=== PATIENT | male | born 1945 ===

== ENCOUNTER 2017-03-10 18:33 | Emergency (ER) | payer OTHER ==
[2017-03-10 19:45] VITALS: RESP 18; BMI 29.9
[2017-03-10] MEDS ORDERED: Morphine 4 mg/ml ISec IVP STA (20:27)
--- NOTE | 2017-03-10 20:29 | ED PDOC ---
Arrival/HPI - General Chief Complaint: Lower Extremity Problem/Injury Time Seen by Provider: 03/10/17 19:59 Historian: Patient - History of Present Illness Narrative History of Present Illness (Text): 03/10/17 20:21 71 y/o male, pmh including htn/seizure/heart valve on the blood thinner, nkda, c /o rt. knee pain and swelling x 3 days with no fall or trauma. Aching pain, associated with swelling, no fever or chills, no night sweat, no dizziness, no rash, no numbness or tingling, no night sweat, no other medical or psychological complaints. Past Medical History - Provider Review Nursing Documentation Reviewed: Yes - Infectious Disease Hx of Infectious Diseases: None - Cardiac Hx Hypertension: Yes - Neurological Hx Seizures: Yes - Psychiatric Hx Substance Use: No Family/Social History - Physician Review Nursing Documentation Reviewed: Yes Family/Social History: Unknown Family HX Smoking Status: Never Smoked Hx Alcohol Use: No Hx Substance Use: No Allergies/Home Meds Allergies/Adverse Reactions: Allergies No Known Allergies Allergy (Verified 03/10/17 19:45) Home Medications: Home Meds Medication Instructions Recorded Confirmed Amlodipine Bes/Olmesartan Med 1 tab PO DAILY 03/10/17 03/10/17 [Amlodipine-Olmesartan 10-20 mg] Levetiracetam [Keppra] 1,000 mg PO BID 03/10/17 03/10/17 Metoprolol Succinate [Toprol XL] 100 mg PO DAILY 03/10/17 03/10/17 Valsartan/Hydrochlorothiazide 1 tab PO DAILY 03/10/17 03/10/17 [Valsartan-Hctz 320-25 mg Tab] Warfarin Sodium [Jantoven] 5 mg PO DAILY 03/10/17 03/10/17 lamoTRIgine [Lamictal] 50 mg PO QAM 03/10/17 03/10/17 lamoTRIgine [Lamictal] 100 mg PO QPM 03/10/17 03/10/17 Review of Systems - Review of Systems Constitutional: absent: Fatigue, Fevers Eyes: absent: Vision Changes ENT: absent: Hearing Changes Respiratory: absent: SOB, Cough Cardiovascular: absent: Chest Pain Gastrointestinal: absent: Abdominal Pain, Diarrhea, Nausea, Vomiting Genitourinary Male: absent: Dysuria Musculoskeletal: Arthralgias, Joint Swelling. absent: Back Pain, Neck Pain, Myalgias Skin: absent: Rash, Pruritis, Skin Lesions Neurological: absent: Headache Psychiatric: absent: Anxiety, Depression, Suicidal Ideation Physical Exam Vital Signs Reviewed: Yes Vital Signs Temp Pulse Resp BP Pulse Ox 03/10/17 23:06 97.9 F 84 18 120/68 100 03/10/17 21:20 67 18 126/72 100 03/10/17 18:33 98.2 F 63 18 105/54 L 97 Temperature: Afebrile Pulse: Regular Respiratory Rate: Normal Appearance: Positive for: Well-Appearing, Non-Toxic, Comfortable Pain Distress: Severe Mental Status: Positive for: Alert and Oriented X 3 - Systems Exam Head: Present: Atraumatic, Normocephalic Pupils: Present: PERRL Extroacular Muscles: Present: EOMI Conjunctiva: Present: Normal Mouth: Present: Moist Mucous Membranes Neck: Present: Normal Range of Motion Respiratory/Chest: Present: Clear to Auscultation, Good Air Exchange. No: Respiratory Distress, Accessory Muscle Use Cardiovascular: Present: Regular Rate and Rhythm, Normal S1, S2. No: Murmurs Abdomen: Present: Normal Bowel Sounds. No: Tenderness, Distention, Peritoneal Signs Back: Present: Normal Inspection Upper Extremity: Present: Normal Inspection. No: Cyanosis, Edema Lower Extremity: Present: Normal Inspection, Other (RLE: +ttp on the medial and lateral aspect of the knee with mild swelling, no erythematous, no cellulitis or streaking, FROM without limitation, sensation intact, motor 5/5, +DPPT pulses , capillary refill< 2 second, neurovascular intact, negative bello signs. ). No: Edema Neurological: Present: GCS=15, Speech Normal, Motor Func Grossly Intact, Gait Normal, Memory Normal Skin: Present: Warm, Dry, Normal Color. No: Rashes Psychiatric: Present: Alert, Oriented x 3, Normal Insight, Normal Concentration Medical Decision Making ED Course and Treatment: 03/10/17 20:33 -labs -RLE venuous doppler -Rt. knee xray -IV morphine -Observe and reassess 03/10/17 23:33 -RLE Venouous Dopple: as per preliminary report, no acute DVT -Rt. knee xray: no fracture or dislocation but degenerative joint changes. -Labs are non-significant and INR 2.91 -K+ 3.3 with potassium chloride 20meq po ordered. -pain resolved, claudio wrap and crutches ordered. -Discharge home with tylenol, claudio wrap, cane, follow up with your own pmd and orthopedic within 2 days, return to the ER for any new or worsening signs or symptoms. - Lab Interpretations Lab Results: 03/10/17 21:15 03/10/17 21:15 Lab Results 03/10/17 21:15: WBC 6.6, RBC 4.42, Hgb 12.5 L, Hct 38.4 L, MCV 86.9, MCH 28.3, MCHC 32.6, RDW 14.3, Plt Count 178, MPV 10.2, Gran % 76.8 H, Lymph % (Auto) 13.5 L, Island % (Auto) 5.9, Eos % (Auto) 3.6, Baso % (Auto) 0.2, Gran # 5.05, Lymph # 0.9 L, Island # 0.4, Eos # 0.2, Baso # 0.01 03/10/17 21:15: Sodium 143, Potassium 3.3 L, Chloride 106, Carbon Dioxide 27, Anion Gap 13, BUN 29 H, Creatinine 1.7 H, Est GFR ( Amer) 48, Est GFR ( Non-Af Amer) 40, Random Glucose 106, Uric Acid 8.9 H, Calcium 9.7, Total Bilirubin 0.5, AST 31, ALT 32, Alkaline Phosphatase 70, Total Protein 7.6, Albumin 4.1, Globulin 3.5, Albumin/Globulin Ratio 1.2 03/10/17 21:15: PT 33.9 H, INR 2.91 H, APTT 42.9 H - RAD Interpretation Radiology Orders: 03/10/17 20:27 KNEE W PATELLA RIGHT 3 VIEW [RAD] Stat DUPLEX LOWER EXTRM VEIN RIGHT [US] Stat -RLE Venouous Doppler: as per preliminary report, no acute DVT Senior Cyber Intelligence Analyst: Radiologist - Medication Orders Current Medication Orders: Discontinued Medications Sodium Chloride (Sodium Chloride 0.9%) 500 mls @ 999 mls/hr IV .Q31M STA Stop: 03/10/17 23:11 Morphine Sulfate (Morphine) 4 mg IVP STAT STA Stop: 03/10/17 20:28 Last Admin: 03/10/17 21:15 Dose: 4 mg MAR Pain Assessment Document 03/10/17 21:15 SRE (Rec: 03/10/17 21:20 SRE [email or web address]) Pain Reassessment Is this a pain reassessment? Yes Presence of Pain Presence of Pain Yes Location Left, Right or Bilateral Left Pain Location Body Site Knee Description Description Constant Intensity of Pain at present 8 IVP Administration Document 03/10/17 21:15 SRE (Rec: 03/10/17 21:20 SRE [email or web address]) Charges for Administration # of IVP Administrations 1 Potassium Chloride (K-Dur 20 Meq Er Tab) 20 meq PO STAT STA Stop: 03/10/17 23:25 - PA / AIRWAYS CONTROL SPECIALIST / Resident Statement MD/DO has reviewed & agrees with the documentation as recorded. Disposition/Present on Arrival - Present on Arrival Any Indicators Present on Arrival: No History of DVT/PE: No History of Uncontrolled Diabetes: No Urinary Catheter: No History of Decub. Ulcer: No History Surgical Site Infection Following: None - Disposition Have Diagnosis and Disposition been Completed?: Yes Diagnosis: Knee joint pain, Degenerative joint disease Disposition: HOME/ ROUTINE Disposition Time: 23:36 Patient Plan: Discharge Patient Problems: Current Active Problems Problem Status Onset Degenerative joint disease Acute Knee joint pain Acute Condition: IMPROVED Discharge Instructions (ExitCare): Osteoarthritis (ED) Print Language: LATVIAN Additional Instructions: -Discharge home with tylenol, claudio wrap, cane, follow up with your own pmd and orthopedic within 2 days, return to the ER for any new or worsening signs or symptoms. Prescriptions: Acetaminophen [Tylenol 325mg tab] 2 tab PO QID PRN #30 tab PRN Reason: Other Referrals: Parmjit Rosario MD [Primary Care Provider] - Follow up with primary Chepe Mcmahon MD [Staff Provider] - Follow up with primary Forms: [employer] (Kazakh)
[2017-03-10 21:21] VITALS: O2SAT 100
[2017-03-10 21:40] LABS: BASO # 0.01 K/mm3 (0.0-2.0); BASO % 0.2 % (0.0-3.0); EOS # 0.2 (0.0-0.7); EOS % 3.6 % (1.5-5.0); GRAN # 5.05 (1.4-6.5); GRAN % 76.8 % (50.0-68.0); HEMOGLOBIN 12.5 g/dL (14.0-18.0); LYMPH # 0.9 (1.2-3.4); LYMPH % 13.5 % (22.0-35.0); MEAN CELL VOLUME 86.9 fl (80.0-105.0); MEAN CORPUSCULAR HEMOGLOBIN 28.3 pg (25.0-35.0); MEAN CORPUSCULAR HGB CONC 32.6 g/dl (31.0-37.0); MEAN PLATELET VOLUME 10.2 fl (7.0-11.0); MONO # 0.4 (0.1-0.6); MONO % 5.9 % (1.0-6.0); RBC 4.42 10^6/uL (3.5-6.1); RED CELL DISTRIBUTION WIDTH 14.3 % (11.5-14.5); WHITE BLOOD COUNT 6.6 10^3/ul (4.5-11.0)
[2017-03-10 21:56] LABS: INR 2.91 (0.93-1.08); PROTHROMBIN TIME 33.9 SECONDS (9.4-12.5)
[2017-03-10 21:57] LABS: PARTIAL THROMBOPLASTIN TIME 42.9 Seconds (25.1-36.5)
[2017-03-10 21:59] LABS: ALB/GLOB RATIO 1.2 (1.1-1.8); ALBUMIN 4.1 g/dL (3.0-4.8); CALCIUM 9.7 mg/dL (8.4-10.5); URIC ACID 8.9 mg/dL (3.5-8.5)
[2017-03-10] MEDS ORDERED: Sodium Chloride 0.9% 500 ML IV STA (22:41)
[2017-03-10 23:07] VITALS: BP 120/68; PULSE 84; TEMP 97.9
[2017-03-10] MEDS ORDERED: Potassium Chloride 20 mEq ER Tab PO STA (23:24)
--- NOTE | 2017-03-11 11:51 | RAD ---
PROCEDURE: Right Knee Radiographs. HISTORY: rt. knee pain and swelling COMPARISON: None. FINDINGS: BONES: No acute fracture. No acute fracture. Proliferative hypertrophic changes emanating from the femoral condyle and tibial plateau regions. JOINTS: Degenerative changes primarily affecting medial compartment. JOINT EFFUSION: Trace joint effusion OTHER FINDINGS: Suprapatellar soft tissue swelling. IMPRESSION: Soft tissue swelling without acute articular or osseous abnormality.
--- NOTE | 2017-03-11 18:07 | US ---
PROCEDURE: Right lower extremity venous duplex Doppler. HISTORY: RLE swelling COMPARISON: None available. TECHNIQUE: Common femoral, superficial femoral, popliteal and posterior tibial veins were evaluated. Flow was assessed with color Doppler, compressibility, assessment of phasic flow and augmentation response. FINDINGS: COMMON FEMORAL VEIN: Normal flow, compressibility and augmentation response. SUPERFICIAL FEMORAL VEIN: Normal flow, compressibility and augmentation response. POPLITEAL VEIN: Normal flow, compressibility and augmentation response. POSTERIOR TIBIAL VEIN: Normal flow, compressibility and augmentation response. OTHER FINDINGS: None. IMPRESSION: No evidence of deep venous thrombosis in the right lower extremity.
== END 2017-03-10 23:40 | disposition home or self-care (01) ==
LOC: ED 18:33
DX: M25.561 Pain in right knee (principal); M19.90 Unspecified osteoarthritis, unspecified site; I10 Essential (primary) hypertension; Z79.01 Long term (current) use of anticoagulants
CPT/HCPCS: 73562; 80053; 84550; 85025; 85610; 85730; 93971; 96374; 99285; J2270

== ENCOUNTER 2017-03-14 20:44 | Emergency (ER) | payer OTHER ==
[2017-03-14 20:44] VITALS: BMI 29.9
--- NOTE | 2017-03-14 21:14 | ED PDOC ---
Arrival/HPI - General Chief Complaint: Lower Extremity Problem/Injury Time Seen by Provider: 03/14/17 20:54 Historian: Patient, Family - History of Present Illness Narrative History of Present Illness (Text): 03/14/17 21:12 Remedios Interiano is a 71 year old male, whose past medical history includes hypertension and seizures, who presents to the Emergency department accompanied by relative for right knee pain for 1 week. Relative states patient was seen on 03/10/2017 for similar symptoms and discharged home. Patient had XR and US studies performed which were negative for any acute processes. Patient was seen by his PMD and is scheduled for outpatient MRI, but is still experiencing pain and requested pain medication. Patient denies any decreased range of motion, weakness/numbness/tingling in extremity, recent trauma/injury, fever, chest pain , shortness of breath, nausea, or any other complaints. Time/Duration: 1 week Symptom Onset: Gradual Symptom Course: Unchanged Activities at Onset: Light Context: Home Past Medical History - Provider Review Nursing Documentation Reviewed: Yes - Infectious Disease Hx of Infectious Diseases: None - Cardiac Hx Hypertension: Yes - Neurological Hx Seizures: Yes - Psychiatric Hx Substance Use: No Family/Social History - Physician Review Nursing Documentation Reviewed: Yes Family/Social History: Unknown Family HX Smoking Status: Never Smoked Hx Alcohol Use: No Hx Substance Use: No Allergies/Home Meds Allergies/Adverse Reactions: Allergies No Known Allergies Allergy (Verified 03/14/17 20:53) Home Medications: Home Meds Medication Instructions Recorded Confirmed Amlodipine Bes/Olmesartan Med 1 tab PO DAILY 03/10/17 03/14/17 [Amlodipine-Olmesartan 10-20 mg] Levetiracetam [Keppra] 1,000 mg PO BID 03/10/17 03/14/17 Metoprolol Succinate [Toprol XL] 100 mg PO DAILY 03/10/17 03/14/17 Valsartan/Hydrochlorothiazide 1 tab PO DAILY 03/10/17 03/14/17 [Valsartan-Hctz 320-25 mg Tab] Warfarin Sodium [Jantoven] 5 mg PO DAILY 03/10/17 03/14/17 lamoTRIgine [Lamictal] 50 mg PO QAM 03/10/17 03/14/17 lamoTRIgine [Lamictal] 100 mg PO QPM 03/10/17 03/14/17 Review of Systems - Physician Review All systems were reviewed & negative as marked: Yes - Review of Systems Constitutional: Normal. absent: Fevers Eyes: Normal ENT: Normal Respiratory: Normal. absent: SOB, Cough Cardiovascular: Normal. absent: Chest Pain, Calf Pain Gastrointestinal: Normal. absent: Abdominal Pain, Diarrhea, Nausea, Vomiting Genitourinary Male: Normal. absent: Dysuria, Frequency, Hematuria, Urinary Output Changes Musculoskeletal: Arthralgias (+right knee pain). absent: Neck Pain Skin: Normal. absent: Rash Neurological: Normal. absent: Headache, Dizziness Endocrine: Normal Hemo/Lymphatic: Normal Psychiatric: Normal Physical Exam Vital Signs Reviewed: Yes Vital Signs Temp Pulse Resp BP Pulse Ox 03/14/17 20:53 98.1 F 66 16 126/67 98 Temperature: Afebrile Blood Pressure: Normal Pulse: Regular Respiratory Rate: Normal Appearance: Positive for: Well-Appearing, Non-Toxic, Comfortable Pain Distress: None Mental Status: Positive for: Alert and Oriented X 3 - Systems Exam Head: Present: Atraumatic, Normocephalic Pupils: Present: PERRL Extroacular Muscles: Present: EOMI Conjunctiva: Present: Normal Mouth: Present: Moist Mucous Membranes Neck: Present: Normal Range of Motion. No: Meningeal Signs, MIDLINE TENDERNESS , Paraspinal Tenderness Respiratory/Chest: Present: Clear to Auscultation, Good Air Exchange. No: Respiratory Distress, Accessory Muscle Use Cardiovascular: Present: Regular Rate and Rhythm, Normal S1, S2. No: Murmurs Abdomen: Present: Normal Bowel Sounds. No: Tenderness, Distention, Peritoneal Signs Back: Present: Normal Inspection. No: CVA Tenderness, Midline Tenderness, Paraspinal Tenderness Upper Extremity: Present: Normal Inspection. No: Cyanosis, Edema Lower Extremity: Present: NORMAL PULSES, Normal ROM, Tenderness (Pain with right knee flexion and palpation of right knee), Neurovascularly Intact, Capillary Refill < 2 s. No: Edema, CALF TENDERNESS, Cyanosis, Swelling, Erythema, Deformity, Temperature Abnormalties Neurological: Present: GCS=15, CN II-XII Intact, Speech Normal Skin: Present: Warm, Dry, Normal Color. No: Rashes Psychiatric: Present: Alert, Oriented x 3, Normal Insight, Normal Concentration Medical Decision Making ED Course and Treatment: 03/14/17 21:12 Impression: 71 year old male complaining of right knee pain for 1 week. Plan: -- Morphine -- Reassess and disposition Prior Visits: Notes and results from previous visits were reviewed. On 03/10/2017, pt was seen in the Emergency department for right knee pain. Lower Extremity doppler was negative for DVT, Right Knee XR with degenerative joint changes but negative for fracture or dislocation. Pt was d/c home on Tylenol and Colchicine. Progress Notes: 03/14/17 22:19 On re-evaluation, patient feels better and is in no acute distress. I have discussed plan with the patient, who expresses understanding. Patient in agreement with plan to be discharged home. Patient is stable for discharge. Patient was instructed to follow up with physician or return if symptoms worsen or new concerning symptoms arise. - Medication Orders Current Medication Orders: Discontinued Medications Morphine Sulfate (Morphine) 4 mg IM STAT STA Stop: 03/14/17 21:19 Last Admin: 03/14/17 21:53 Dose: 4 mg MAR Pain Assessment Document 03/14/17 21:53 IT (Rec: 03/14/17 21:53 IT [id number]) Pain Reassessment Is this a pain reassessment? No Sleep Is patient sleeping during reassessment? No Presence of Pain Presence of Pain Yes Pain Scale Used Pain Scale Used Numeric Location Left, Right or Bilateral Right Pain Location Body Site Knee IM Administration Charges Document 03/14/17 21:53 IT (Rec: 03/14/17 21:53 IT [id number]) Injection Site MAR Injection Site Left Deltoid Charges for Administration # of IM Administrations 1 - Scribe Statement The provider has reviewed the documentation as recorded by the Scribjuan Jama All medical record entries made by the Scribe were at my direction and personally dictated by me. I have reviewed the chart and agree that the record accurately reflects my personal performance of the history, physical exam, medical decision making, and the department course for this patient. I have also personally directed, reviewed, and agree with the discharge instructions and disposition. Disposition/Present on Arrival - Present on Arrival Any Indicators Present on Arrival: No History of DVT/PE: No History of Uncontrolled Diabetes: No Urinary Catheter: No History of Decub. Ulcer: No History Surgical Site Infection Following: None - Disposition Have Diagnosis and Disposition been Completed?: Yes Diagnosis: Knee joint pain, Degenerative joint disease Disposition: HOME/ ROUTINE Disposition Time: 22:19 Patient Plan: Discharge Patient Problems: Current Active Problems Problem Status Onset Degenerative joint disease Acute Knee joint pain Acute Condition: GOOD Discharge Instructions (ExitCare): Osteoarthritis (ED) Additional Instructions: Take meds as prescribed/follow up with your orthopedist this week as previously instructed Prescriptions: oxyCODONE/Acetaminophen [Percocet 5/325 mg Tab] 1 tab PO Q6 PRN #16 tab PRN Reason: Pain, Moderate (4-7) Referrals: Parmjit Rosario MD [Primary Care Provider] - Follow up with primary Forms: [email or web address] (Khmer)
[2017-03-14] MEDS ORDERED: Morphine 4 mg/ml ISec IM STA (21:18)
[2017-03-14 22:50] VITALS: BP 118/72; PULSE 72; RESP 17; TEMP 98; O2SAT 97
== END 2017-03-14 22:50 | disposition home or self-care (01) ==
LOC: ED 20:44
DX: M17.11 Unilateral primary osteoarthritis, right knee (principal); M25.561 Pain in right knee
CPT/HCPCS: 96372; 99283; J2270